=== PATIENT | male | born 1975 | race Two or more races ===

== ENCOUNTER 2020-04-10 07:40 | Day surgery (SDC) | payer OTHER ==
[2020-04-10] MEDS ORDERED: TRAMADOL HCL50 MG PO ×2 (14:38→15:48)
== END 2020-04-10 20:48 | disposition home or self-care (01) ==
LOC: CIR.AMB 07:40
PROVIDERS: ATTEND Surgery
DX: C20 Malignant neoplasm of rectum (principal)
CPT/HCPCS: 36561; C1751

== ENCOUNTER 2020-08-07 09:00 | Inpatient (IN) | payer OTHER ==
[~2020-08-07] VITALS: Ht 185.4 cm; Wt 100.2 kg
[~2020-08-07 09:00] MED LIST: TRAMADOL HCL50 MG PO
[2020-08-18] MEDS ORDERED: LEVSIN/SL0.125 MG SL (08:35)
[2020-08-18] MEDS ORDERED: PERCOCET 5-3251 EACH PO (08:35)
[2020-08-18] MEDS ORDERED: SIMETHICONE80 MG PO (08:36)
== END 2020-08-18 12:20 | disposition home or self-care (01) | DRG 333 ==
LOC: O/R 08-14 06:00 → SURH 08-14 06:00
PROVIDERS: ADMIT Surgery; ATTEND Surgery
PROC: 07BC4ZX Excision of Pelvis Lymphatic, Percutaneous Endoscopic Approach, Diagnostic (ICD-10-PCS; 2020-08-14)
PROC: 0DJD8ZZ Inspection of Lower Intestinal Tract, Via Natural or Artificial Opening Endoscopic (ICD-10-PCS; 2020-08-14)
PROC: 0DBP4ZZ Excision of Rectum, Percutaneous Endoscopic Approach (ICD-10-PCS; principal; 2020-08-14 07:00)
DX: C20 Malignant neoplasm of rectum (principal); D68.9 Coagulation defect, unspecified; R59.0 Localized enlarged lymph nodes; F43.20 Adjustment disorder, unspecified

== ENCOUNTER 2022-06-20 12:30 | Inpatient (IN) | payer OTHER ==
[~2022-06-20] VITALS: Ht 185.4 cm; Wt 103.0 kg
[~2022-06-20 12:30] MED LIST changes: +LEVSIN/SL0.125 MG SL; +PERCOCET 5-3251 EACH PO; +SIMETHICONE80 MG PO
[2022-06-21] MEDS ORDERED: XARELTO20 MG PO (09:40)
[2022-06-29] MEDS ORDERED: INTESTINEX680 M1 PO (15:06)
[2022-06-29] MEDS ORDERED: PERCOCET 5-3251 EACH PO (15:06)
[2022-06-29] MEDS ORDERED: LEVSIN/SL0.125 MG SL (15:06)
[2022-06-29] MEDS ORDERED: GAS RELIEF180 MG PO (15:07)
== END 2022-06-29 16:40 | disposition home or self-care (01) | DRG 330 ==
LOC: SURG 06-24 11:30 → O/R 06-26 05:51 → SURH 06-26 05:51
PROVIDERS: ADMIT Surgery; ATTEND Surgery
PROC: 0DQB4ZZ Repair Ileum, Percutaneous Endoscopic Approach (ICD-10-PCS; principal; 2022-06-26 11:45)
DX: Z43.2 Encounter for attention to ileostomy (principal); C20 Malignant neoplasm of rectum; D68.62 Lupus anticoagulant syndrome; I82.291 Chronic embolism and thrombosis of other thoracic veins; Z20.822 Contact with and (suspected) exposure to COVID-19

== ENCOUNTER → 2022-06-21 07:41 | Outpatient (CLI) | payer OTHER ==
[~2022-06-21 07:41] MED LIST changes: +XARELTO20 MG PO
== END | disposition home or self-care (01) ==
LOC: NUCLEAR 07:41
PROVIDERS: ATTEND Internal Medicine Geriatric Medicine
DX: D68.9 Coagulation defect, unspecified (principal); Z86.718 Personal history of other venous thrombosis and embolism